=== PATIENT | female | born 1970 | race Caucasian/White ===

== ENCOUNTER 2021-12-07 12:43 | Outpatient (CLI) | payer OTHER, SELFPAY ==
[2021-12-07 13:35] LABS: Basophils Absolute Auto 0.02 K/uL (0.00-0.30); Basophils Percent Auto 0.4 % (0.0-3.0); Eosinophils Absolute Auto 0.07 K/uL (0.00-0.50); Eosinophils Percent Auto 1.4 % (0.0-7.0); Hematocrit 47.3 % (33.0-51.0); Hemoglobin* 15.6 gm/dL (12.0-16.0); Immature Granulocytes Abs Auto 0.01 K/uL (0.00-0.30); Lymphocytes Absolute Auto 1.09 K/uL (0.90-2.90); Lymphocytes Percent Auto 21.4 % (20-44); Mean Corpuscular HGB Conc 33 gm/dL (32-36); Mean Corpuscular Hemoglobin 30 pg (26-34); Mean Corpuscular Volume 91 fL (80-100); Monocytes Percent Auto 8.8 % (0.0-11.0); Neutrophils Absolute Auto 3.45 K/uL (1.7-7.0); Neutrophils Percent Auto 67.8 % (42.0-72.0); Platelet Count* 185 K/uL (140-440); Red Blood Count 5.19 m/uL (4.00-5.20); White Blood Count* 5.09 K/uL (4.50-11.00)
[2021-12-07 13:38] LABS: Chloride* 107 mmol/L (96-114)
[2021-12-07 13:39] LABS: Potassium* 4.2 mmol/L (3.6-5.1); Slide Review Reflex No; Sodium* 141 mmol/L (135-149)
[2021-12-07 13:41] LABS: Creatinine* 0.7 mg/dL (0.5-1.5); Estimated Glomerular Filt Rate 103 ml/min
[2021-12-07 13:42] LABS: Blood Urea Nitrogen* 17 mg/dL (7-30); Calcium* 9.4 mg/dL (8.4-10.6); Carbon Dioxide* 29 mmol/L (20-32); Glucose* 112 mg/dL (60-115)
[2021-12-07 13:55] LABS: Troponin I* < 0.01 ng/mL (0.01-0.04)
== END 2021-12-07 12:44 | disposition home or self-care (01) ==
PROVIDERS: PCP Nurse Practitioner Family; Visit Provider Family Medicine
DX: R07.9 Chest pain, unspecified (principal)
CPT/HCPCS: 80048; 84484; 85025

== ENCOUNTER 2021-12-15 12:43 | Outpatient (CLI) | payer OTHER, SELFPAY ==
[2021-12-15 13:50] VITALS: BP 159/72; PULSE 95
--- NOTE | 2021-12-15 14:08 | P.STN_ITS ---
Stress Test Note Date Time Seen by Provider: 13:40 Date Seen: 12/15/21 Date of test: 12/15/21 Providers Referring provider: Edison Moraes Primary care provider: Edison Moraes Stress test physician: Nancy Johns Stress Test Note Stress test ordered: Stress Echo Indication for test: Chest pain/short of breath. Cardiac history sheet reviewed. Stress test medicine: None Results discussion: Resting EKG: Sinus rhythm, 76 beats per minute. Resting blood pressure: 122/74 Stress test: Patient was exercised using treadmill standard Gunner protocol. She was able to exercise to 6 minutes 26 seconds, stopping due to leg fatigue a nd shortness of breath. She did not experience any chest pain. There were no arrhythmias. No definitive ischemic changes noted. She achieves 7.7 Mets. She exercised to a maximum heart rate of 154 beats per minute which was 108% of a calculated target heart rate of 142. She did have hypertensive response to exercise with blood pressure 170/84. Her calculated rate pressure product with a pulse of 154 and systolic blood pressure 170 is 26,180. Echo images pending to couple this report for full formal diagnostic. Impression: Subjectively negative, objectively negative EKG portion of this stress echo. Follow up suggested: Patient will await a final report once read by Cardiology, test results will be provided by Dr. Moraes. She was discharged from here in stable condition. She understands with recurrent episodes like she had prior, I do recommend being evaluated.
== END 2021-12-15 12:44 | disposition home or self-care (01) ==
LOC: STRESS 12:43
PROVIDERS: PCP Family Medicine; Visit Provider Family Medicine
DX: R07.89 Other chest pain (principal); R06.02 Shortness of breath
CPT/HCPCS: 93016; 93325; 93351

== ENCOUNTER 2022-02-13 17:19 | Outpatient (CLI) | payer OTHER, SELFPAY ==
--- OUTSIDE RECORDS SUMMARY | 2022-02-20 16:41 | XMS_ITS | Clinical Summary ---
:1970 Author Organization [facility] [place] [address] Care Team Providers Name Role Phone Lilia Isaac MD Unavailable Mary Boss MD Unavailable Pcp, No Primary Care Provider Unavailable Allergies Active Allergy Reactions Severity Noted Date Comments Duloxetine Other - Describe In 06/22/2016 Manic re action Comment Field Repeated emesi s Venlafaxine Other - Describe In 08/15/2017 Weight g ain and moodiness Comment Field Gabapentin Seizures High 04/20/2016 Morphine Anxiety 10/18/2012 Tramadol Other - Describe In 09/24/2012 Affected her Comment Field vision(funky eyes) Bupropion Seizures 03/08/2012 Medications Medication Sig Dispensed Refills Start Date End Date Status medication order M1 Meloxicam 240 g 0 07/11/2016 Active composerIndications: 0.2%, Lamotrigine Chronic left shoulder 2.5%, lidocaine pain, Bilateral hip 2%, Prilocaine pain 2%. 1-2gm to affected areas up to 3 times/day. Rub in for 2 minutes. cholecalciferol Take 1 capsule by 90 capsule 3 08/15/2017 Active (VITAMIN D-3) 2,000 mouth once daily. unit capsuleIndications: Vitamin D deficiency cyclobenzaprine Take 1 tablet by 90 tablet 3 04/17/2018 Active (FLEXERIL) 10 mg mouth at bedtime tabletIndications: if needed for Fibromyalgia, Panic Other (Specify) attacks (fibromyalgia). ALPRAZolam (XANAX) Take 2 tablets by 60 tablet 5 08/07/2018 Active 0.25 mg mouth at bedtime tabletIndications: if needed. Panic attacks nicotine (NICOTROL) 10 Inhale 10 mg by 168 Each 3 08/27/2018 Active mg inhalerIndications: mouth every hour Tobacco use while awake as needed for Nicotine Craving. Active Problems Problem Noted Date Pure hypercholesterolemia 08/15/2017 Tobacco use 08/15/2017 Bilateral hip pain 08/02/2016 Overview: July 2016: bilateral Greater Trochanter ic Bursa injections. 90% improvement in both hips for 4-5 months. Dec 2016: repeat Bilateral Greater Troc hanteric Bursa injections, and referral to physical therapy. 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 Resolved Problems Problem Noted Date Resolved Date Severe recurrent major depression without psychotic features 03/08/2012 04/17/2012 Overview: Has been thought in the past to have Bip olar Disorder. Cannabis dependence, continuous 03/08/2012 04/17/20 12 Ovarian cyst, right 03/08/2012 06/22/2016 Overview: Ultrasound recommended as outpatient. Abnormal glandular Papanicolaou smear of cervix 01/09/2012 06/22/2016 Encounters Date Type Specialty Care Team Description 12/15/2021 Orders Only <No scans attac hed> from Last 3 Months Immunizations Name Administration Dates Next Due Influenza Virus, Unspecified 02/19/2017 Influenza, IIV3 (Age >=3 years) 01/28/2018, 01/28/2016 Influenza, IIV4 02/23/2015 MMR 04/28/2015, 03/29/2015 Tdap 07/03/2012 Family History Medical History Relation Name Comments Psychiatric illness Brother 2 panic disord er Alcohol/Drug Daughter Cancer Father bladder CA - d a t 62 Lupus Maternal Aunt 1 Psychiatric illness Maternal Aunt 1 Schizophreni a Arthritis Maternal Aunt 2 RA Cancer-breast Maternal Grandmother Other Mother 5# ovarian cyst, psychiatry Parkinsonism Mother Rheum arthritis Mother Alcohol/Drug Paternal Grandfather Rheum arthritis Sister 1 Other Sister 2 hyst for ovarian problem, psychiatry (anti-depressant s and anti-anxiety) Psychiatric illness Sister 3 anxiety Arthritis Sister 4 RA Relation Name Status Comments Brother 1 Alive Brother 2 Daughter Father Maternal Aunt 1 Maternal Aunt 2 Maternal Grandmother Mother Alive Paternal Grandfather Sister 1 Alive Sister 2 Sister 3 Sister 4 Social History Tobacco Use Types Packs/Day Years Used Date Former Smoker 0.5 25 Quit: 12/26/19 17 Smokeless Tobacco: Never Used Tobacco Cessation: Counseling Given: Yes Comments: quit Alcohol Use Standard Drinks/Week Comments No 0 (1 standard drink = 0.6 oz pure alcoho l) Sex Assigned at Date Recorded Not on file Obstetrics History Para Term AB IAB SAB Ectopic Multiple Living Live Births 4 4 4 4 Date Outcome GA Total Labor/2nd/3rd Weight Sex Delivery Anes PTL Caroline A 1 A5 Name Clin Labor Term F Term F Term F Term M Last Filed Vital Signs Vital Sign Reading Time Taken Comments Blood Pressure 114/79 06/13/2018 4:32 PM [employer]S BASKET[employer]ALL COACH Pulse 80 06/13/2018 4:32 PM [employer] Temperature 36.8 ??C (98.3 ??F) 05/01/2016 1:18 PM [employer] Respiratory Rate 12 04/20/2016 9:50 AM [employer]S [employer]ET[employer] Oxygen Saturation 100% 06/13/2018 4:32 PM [employer] Inhaled Oxygen Concentration - - Weight 90.4 kg (199 lb 4.8 oz) 06/13/2018 4:32 PM [employer] Height 170.2 cm (5' 7) 06/13/2018 4:32 PM [employer] Body Mass Index 31.21 06/13/2018 4:32 PM [employer] Plan of Treatment Health Maintenance Due Date Last Done Comments Hepatitis C screening for age 0307/10/1986 18-79 Colonoscopy through age 75 2013 Pap test for age 21-65 12/19/2016 12/19/2013, 09/19/2012, 09/19/2012, Additional history exists Zoster (shingles) series for age 0307/10/2018 50+ (1 of 2) Mammogram for age 45-75 08/20/2018 08/20/2017, 07/18/2012 BMI (ht and wt on same day) for 06/13/2019 06/13/2018, 0908/2017, age 18+ 08/15/2017, Additional history exists Depression screening for age 12+ 06/13/2019 06/13/2018, , 03/01/2017, Additional history exists COVID-19 vaccine series (3 - 12/27/2021 11/01/2021, 021 Booster for Pfizer series) Influenza for age 50-64 12/29/2021 01/28/2018, 02/19/2017, 01/28/2016, Additional history exists Tetanus booster 07/03/2022 07/03/2012, 07/03/2012 Lipids for age 45-75 08/15/2022 08/15/2017, 01/25/2016 Tdap Completed 07/03/2012 Procedures Procedure Name Priority Date/Time Associated Diagnosis Comme nts ECHO STRESS WO Routine 12/15/2021 1:45 PM Chest pain Results for this CONTRAST CDT procedure are i n the results section. from Last 3 Months Results ECHO STRESS WO CONTRAST (12/15/2021 1:45 PM CDT) P athologist Signature AORTIC VALVE 4 mmHg MEAN PG LVEDD 4.3 cm EJECTION 55 - 60% FRACTION Anatomical Region Laterality Modality HEART Ultrasound Specimen (Source) Anatomical Collection Method Collection Time Re ceived Time Location / / Volume Laterality 12/15/2021 1:08 PM CDT Narrative 12/15/2021 2:12 PM CDT STRESS ECHOCARDIOGRAM LILLIAM ROMERO ? Accessi on#: ?? [id number] : ?1970 51 years Study Date: ?? 12/15/2021 1:08:43 PM Gender: F ?BP: ? 122/74 mmHg Height: 173.00 cm ?BSA: ?1.98 m? ?? Weight: 84.00 kg ? Tech: ? MCK ? Referring MD: GARRET SHAW Site: ? [facility] Reading Location: [facility] Procedure: Stress Echo, Color Doppler an d Limited Spectral Doppler. Gunner stress echo. Indication for study: Chest pain Cardiac Rhythm: Regular.Study quality: F air. Final Impressions: 1. Normal stress echocardiogram without evidence of inducible ischemia by imaging. 2. See separate report for stress ECG i nterpretation. 3. With exercise, the LV end-systolic d imension decreased and LVEF increased appropriately. 4. Normal blood pressure and heart rate response to exercise. Target heart rate was achieved. 5. Resting LVEF 55-60%. 6. No significant valvular abnormalitie s by limited Doppler assessment. 7. Maximum stress test with 91.9% of ag e predicted maximum heart rate achieved. Stress Data: ? HR ?Systolic Diastolic Time Duration Minutes Seconds Baseline 6 5 bpm ?122 ?74 mmHg ?6 :26 ? Peak ? 153 bpm ?? 170 ?84 mmHg Max Pred HR ?167 % of Max ? 92% Double Product [id number] Echo Findings:This is a negative stress echo test for ischemia. Post stress, decreased left ventricular size, increased global systolic function with an estimated EF of 70 to 75%. LV regional wall motion abnormalities are not present post exercise. EKG:See separate report for EKG interpre tation. Exam Protocol:The patient presents with no significant symptoms at baseline. The patient exercised 6 min 26 sec to stage III according to the Gunner stress echo protocol. Test terminated due to shortness of breath. 10.2 METS were achieved. The patient achieved a heart rate of 153 bpm which is 91.9% of maximum predicted heart rate. Maximum systolic blood pressure was 170 [place] [address]. Maximum stress test with 91. 9% of age predicted maximum heart rate achieved. The blood pressure response was normal. Exercise duration and workload were good. The patient developed no signif icant symptoms during the stress exam. L ow (less than 1% annual mortality rate) non invasive risk stratification. LV Wall Scoring: Stage: All segments are normal. REST Stage: All segments are normal. IMPOST Chamber Sizes and Function Normal left ventricular size, normal liza bal systolic function with an estimated EF of 55 - 60%. LV regional wall motion abnormalities are not present. Left atrial size is normal. Right ventricular cavit y size is normal, global systolic RV fun ction is normal. The right atrium is normal. The pulmonary artery is not well visualized. The sinus of Valsalva is normal sized. The ascending aorta is normal sized. Valves, RV Pressures and Diastolic Funct ion The aortic valve is not well visualized , no stenosis and no regurgitation. The mitral valve is normal in structure, trace mitral regurgitation. The tricuspid valve is normal in structure. Tricuspid reg urgitation is trace. The pulmonic valve is not well visualized. Masses, Effusion, Shunts There is no pericardial effusion. The in ferior vena cava is not well visualized. Interatrial septum is not well visualized. MEASUREMENTS AND CALCULATIONS 2-D Measurements and LV Function: LVID (d) 4.3 cm LV FS% (2D) ?? 48 % LVID (s) 2.2 cm LVOT diameter 2.1 cm IVS (d) ??1.0 cm HR ?65 bpm LVPW (d) 0.9 cm RV Max 4C (d) 2.6 cm Ao Sinus 3.4 cm Asc Ao ?? 2.9 cm LA ? 3.3 cm Diastology: Mitral E Peak 0.78 m/s A Peak 0.64 m/s E/A ?1.2 DT ? 207 msec Aortic Valve: Vmax ? 1.4 m/s ??YANIRA (V) ?? 3.52 cm? ?? VTI ?0.28 m ?? YANIRA (I) ?? 3.33 cm? ?? LVOT V max 1.4 m/s ??Max PG ?7 mmHg LVOT VTI ?? 0.26 m ?? Mean PG ?? 4 mmHg SV ? 92 ml ?Dim Index 0.95 SV index ?? 47 ml/m? ?? Mitral Valve: MVA ?3.7 cm? ?? MV P 1/2 60 msec . This study was interpreted by an [facility] facility. CC: [facility] and [facility]. ??Final ?? Procedure Note Jose Guzmán MD - 12/16/19 22 STRESS ECHOCARDIOGRAM LILLIAM ROMERO : 1970 51 years Study Date: 12/15 1:08:43 PM Gender: F BP: 122/74 mmHg Height: 173.00 cm BSA: 1.98 m? ?? Weight: 84.00 kg Tech: BERE Referring MD: GARRET SHAW Site: [facility] Reading Location: [facility] Procedure: Stress Echo, Color Doppler an d Limited Spectral Doppler. Gunner stress echo. Indication for study: Chest pain Cardiac Rhythm: Regular.Study quality: F air. Final Impressions: 1. Normal stress echocardiogram without evidence of inducible ischemia by imaging. 2. See separate report for stress ECG i nterpretation. 3. With exercise, the LV end-systolic d imension decreased and LVEF increased appropriately. 4. Normal blood pressure and heart rate response to exercise. Target heart rate was achieved. 5. Resting LVEF 55-60%. 6. No significant valvular abnormalitie s by limited Doppler assessment. 7. Maximum stress test with 91.9% of ag e predicted maximum heart rate achieved. Stress Data: HR Systolic Diastolic Time Duration Minutes Seconds Baseline 6 5 bpm 122 74 mmHg 6 :26 Peak 153 bpm 170 84 mmHg Max Pred HR 167 % of Max 92% Double Product [id number] Echo Findings:This is a negative stress echo test for ischemia. Post stress, decreased left ventricular size, increased global systolic function with an estimated EF of 70 to 75%. LV regional wall motion abnormalities are not present post exercise. EKG:See separate report for EKG interpre tation. Exam Protocol:The patient presents with no significant symptoms at baseline. The patient exercised 6 min 26 sec to stage III according to the Gunner stress echo protocol. Test terminated due to shortness of breath. 10.2 METS were achieved. The patient ach ieved a heart rate of 153 bpm which is 91.9% of maximum predicted heart rate. Maximum systolic blood pressure was 170 [place] [id number]. Maximum stress test with 91.9% of age predicted maximum heart rate achieved. The blood pressure response was normal. Exercise duration and workload were good. The patient developed no significant symptoms during the stress exam. Low (less than 1% annual mortality rate) non invasive risk stratification. LV Wall Scoring: Stage: All segments are normal. REST Stage: All segments are normal. IMPOST Chamber Sizes and Function Normal left ventricular size, normal liza bal systolic function with an estimated EF of 55 - 60%. LV regional wall motion abnormalities are not present. Left atrial size is normal. Right ventricular cavity size is normal, global systolic RV function is n ormal. The right atrium is normal. The pulmonary artery is not well visualized. The sinus of Valsalva is normal sized. The ascending aorta is normal sized. Valves, RV Pressures and Diastolic Funct ion The aortic valve is not well visualized , no stenosis and no regurgitation. The mitral valve is normal in structure, trace mitral regurgitation. The tricuspid valve is normal in structure. Tricuspid regurgitation is trace. The pulmonic john ve is not well visualized. Masses, Effusion, Shunts There is no pericardial effusion. The in ferior vena cava is not well visualized. Interatrial septum is not well visualized. MEASUREMENTS AND CALCULATIONS 2-D Measurements and LV Function: LVID (d) 4.3 cm LV FS% (2D) 48 % LVID (s) 2.2 cm LVOT diameter 2.1 cm IVS (d) 1.0 cm HR 65 bpm LVPW (d) 0.9 cm RV Max 4C (d) 2.6 cm Ao Sinus 3.4 cm Asc Ao 2.9 cm LA 3.3 cm Diastology: Mitral E Peak 0.78 m/s A Peak 0.64 m/s E/A 1.2 DT 207 msec Aortic Valve: Vmax 1.4 m/s YANIRA (V) 3.52 cm? ?? VTI 0.28 m YANIRA (I) 3.33 cm? ?? LVOT V max 1.4 m/s Max PG 7 mmHg LVOT VTI 0.26 m Mean PG 4 mmHg SV 92 ml Dim Index 0.95 SV index 47 ml/m? ?? Mitral Valve: MVA 3.7 cm? ?? MV P 1/2 60 msec . This study was interpreted by an [facility] facility. CC: [facility]. Final Garret Shaw MD ECHO ORD from Last 3 Months Insurance Payer Benefit Plan / Subscriber ID Effective Dates Phone Addre ss Type Group WC WORKERS COMP [facility] [id number] 2016-Presen [address] [address] [place] [address] WC WORK[employer] [facility] [id number] 2017-Presen [address] [address] [place] [address] MEDICA MEDICA CHOICE [id number] 2013-Presen [address] [address] [place] [address] PREFERRED ONE PREFERRED [id number] 2015-Prese [address] [place] [address] PREFERRED ONE PREFERRED ONE [id number] 2015-Prese [address] [place] [address] LO [address] 23 y (Home) [phone] (Work) [employer] [id number] Lilliam Romero Personal/Famil Self 1970 LO T 23 y (Home[phone] [address] (Work) [place] [id number] Lilliam Romero Workers Comp Self 1970 [phone] (Work) [employer] [id number] Lilliam Romero Workers Comp Self 1970 [address] (Home) [phone] (Work) [place] [id number] Advance Directives Latest Code Status on File Code Status Date Activated Date Inactivated Comments Full Code 03/07/2012 4:24 PM 03/12/2012 1:46 PM Care Teams Hand Candy Cutter Relationship Specialty Start Date End Date Pcp, No PCP - General 08/30/18 . Lilia Isaac MD Gynecology Unknown Physician Specialty 09/19/12 Mary Boss MD Rheumatology Rheumatology 04/20/16 [address] [place] [facility] [address] [place] [address]
== END 2022-02-13 17:20 | disposition home or self-care (01) ==
LOC: NPINS 02-20 16:39
PROVIDERS: PCP Family Medicine; Visit Provider Surgery
DX: Z20.822 Contact with and (suspected) exposure to COVID-19 (principal)
CPT/HCPCS: 87635

== ENCOUNTER 2022-03-02 12:24 | Outpatient (CLI) | payer OTHER, SELFPAY ==
[2022-02-13 20:48] LABS: SARS PCR* Negative SARS-CoV-2 (Negative)
--- OUTSIDE RECORDS SUMMARY | 2022-03-02 12:29 | XMS_ITS | Clinical Summary ---
:1970 Author Organization [facility] [place] [address] Care Team Providers Name Role Phone Lilia [...] Comments Blood Pressure 114/79 06/13/2018 4:32 PM CRM SOLUTION ARCHITECT Pulse 80 06/13/2018 4:32 PM CRM SOLUTION ARCHITECT Temperature 36.8 ??C (98.3 ??F) 05/01/2016 1:18 PM CRM SOLUTION ARCHITECT Respiratory Rate 12 04/20/2016 9:50 AM CRM SOLUTION ARCHITECT Oxygen Saturation 100% 06/13/2018 4:32 PM CRM SOLUTION ARCHITECT Inhaled Oxygen Concentration - - Weight 90.4 kg (199 lb 4.8 oz) 06/13/2018 4:32 PM CRM SOLUTION ARCHITECT Height 170.2 cm (5' 7) 06/13/2018 4:32 PM CRM SOLUTION ARCHITECT Body Mass Index 31.21 06/13/2018 4:32 PM CRM SOLUTION ARCHITECT Plan of Treatment Health Maintenance Due Date [...] ECHOCARDIOGRAM LILLIAM ROMERO ? Accessi on#: ?? [id number] : ?1970 51 years Study Date: ?? 12/15/2021 1:08:43 PM Gender: F ?BP: ? 122/74 mmHg Height: 173.00 cm ?BSA: ?1.98 m? ?? Weight: 84.00 kg ? Tech: ? MCK ? Referring MD: GARRET SHAW [facility] Reading Location: [facility] Procedure: [...] % of Max ? 92% Double Product [id number] Echo Findings:This is a negative stress echo [...] [place] [address]. Maximum stress test with 91. 9% of [...] . This study was interpreted by an [facility] facility. CC: [facility] and [facility]. ??Final ?? Procedure Note Jose Guzmán MD - 12/16/19 22 STRESS ECHOCARDIOGRAM LILLIAM ROMERO : 1970 51 years Study Date: 12/15 1:08:43 PM Gender: F BP: 122/74 mmHg Height: 173.00 cm BSA: 1.98 m? ?? Weight: 84.00 kg Tech: BERE Referring MD: GARRET SHAW Site: [facility] Reading Location: [facility] Procedure: Stress Echo, Color [...] 167 % of Max 92% Double Product [id number] Echo Findings:This is a negative stress echo [...] [place] [address]. Maximum stress test with 91.9% of age [...] . This study was interpreted by an [facility] facility. CC: [facility]. Final Garret Shaw MD ECHO ORD from Last 3 Months Insurance Payer Benefit Plan / Subscriber ID Effective Dates Phone Addre ss Type Group WC WORKERS COMP [facility] [id number] 2016-Presen [address] [address] [place] [address] WC WORK[employer] [facility] [id number] 2017-Presen [address] [address] [place] [address] MEDICA MEDICA CHOICE [id number] 2013-Presen [address] [address] [place] [address] PREFERRED ONE PREFERRED [id number] 2015-Prese [address] [place] [address] PREFERRED ONE PREFERRED ONE [id number] 2015-Prese [address] [place] [address] LO T 23 y (Home) [phone] (Work) [place] [id number] Lilliam Romero Personal/Famil Self 1970 [address] 23 y ([phone] (Work) [place] [id number] Lilliam Romero Workers Comp Self [phone] (Work) [place] [id number] Lilliam Romero Workers Comp Self 1970 [address]) [phone] [address] (Work) [place] [id number] Advance Directives Latest Code Status on File Code Status Date Activated Date Inactivated Comments Full Code 03/07/2012 4:24 PM 03/12/2012 1:46 PM Care Teams Medical Genetics Director Relationship Specialty Start Date End Date Pcp, No PCP - General 08/30/18 . Lilia Isaac MD Gynecology Unknown Physician Specialty 09/19/12 Mary Boss MD Rheumatology Rheumatology 04/20/16 [address] [place] [facility] [address] [place] [address]
--- NOTE | 2022-03-02 15:01 | W.ANESCHARGE ---
Anesthesia Charges Start Date/Time Anesthesia Start Date: 03/02/22 Anesthesia Start Time: 13:30 Stop Date/Time Anesthesia Stop Date: 03/02/22 Anesthesia Stop Time: 15:00 Summary Emergency: No
--- NOTE | 2022-03-02 15:03 | W.ANESCHARGE ---
Anesthesia Charges Start Date/Time Anesthesia Start Date: 03/02/22 Anesthesia Start Time: 13:30 Stop Date/Time Anesthesia Stop Date: 03/02/22 Anesthesia Stop Time: 15:00 Summary Emergency: No
[2022-05-22 01:43] LABS: SARS PCR* Negative SARS-CoV-2 (Negative)
== END 2022-03-02 12:25 | disposition home or self-care (01) ==
LOC: OP CLINIC 12:27
PROVIDERS: PCP Family Medicine; Visit Provider Surgery
DX: Z86.010 Personal history of colon polyps (principal); K63.5 Polyp of colon
CPT/HCPCS: 00811; 45381; 45385; 88305; J2704

== ENCOUNTER 2022-05-21 23:42 | Outpatient (CLI) | payer OTHER, SELFPAY | END 2022-05-21 23:43 | disposition home or self-care (01) | LOC: NFLDREF 05-22 13:07 | PROVIDERS: PCP Family Medicine; Visit Provider Surgery | DX: Z20.822 Contact with and (suspected) exposure to COVID-19 (principal) | CPT/HCPCS: 87635 ==